=== PATIENT | female | born 1990 | race Caucasian/White ===

== ENCOUNTER 2020-07-20 13:35 | Emergency (ER) | payer SELFPAY ==
[~2020-07-20] VITALS: Ht 157.5 cm; Wt 72.6 kg
== END 2020-07-20 15:09 | disposition left against medical advice (07) ==
LOC: ER 13:35
DX: Z53.21 Procedure and treatment not carried out due to patient leaving prior to being seen by health care provider (principal)

== ENCOUNTER 2020-08-17 16:20 | Inpatient (IN) | payer OTHER ==
[~2020-08-17] VITALS: Ht 157.5 cm; Wt 98.1 kg
[2020-08-17 19:07] LABS: BASOPHILS ABSOLUTE AUTO 0.14 K/mm3 (0.00-0.23); BASOPHILS PERCENT AUTO 1 % (0-2); EOSINOPHILS ABSOLUTE AUTO 0.16 K/mm3 (0.00-0.68); EOSINOPHILS PERCENT AUTO 1 % (0-6); Hematocrit 35.8 % (33.0-51.0); Hemoglobin 11.9 g/dL (11.5-16.0); IMMATURE GRAN ABSOLUTE AUTO 0.34 K/mm3 (0.00-0.10); IMMATURE GRAN PERCENT AUTO 1 % (0-1); LYMPHOCYTES ABSOLUTE AUTO 2.79 K/mm3 (0.84-5.20); LYMPHOCYTES PERCENT AUTO 9 % (21-46); MONOCYTES PERCENT AUTO 4 % (4-13); Mean Corpuscular HGB 28.4 pg (26.0-34.0); Mean Corpuscular HGB Conc 33.2 g/dL (31.5-36.5); Mean Corpuscular Volume 85 fL (80-100); Mean Platelet Volume 10.2 fL (9.1-12.4); NEUTROPHILS ABSOLUTE AUTO 25.67 K/mm3 (1.96-9.15); NEUTROPHILS PERCENT AUTO 84 % (41-73); Platelet Count 189 K/mm3 (150-400); RDW Coefficient Variation 13.9 % (11.7-14.2); RDW Standard Deviation 42.6 fL (35.1-46.3); Red Blood Cell Count 4.19 M/mm3 (3.80-5.20)
[2020-08-17 19:20] LABS: Alanine Aminotransfer (ALT/SGP 45 U/L (12-78); Albumin, Blood 2.8 g/dL (3.4-5.0); Albumin/Globulin Ratio 0.6 (0.8-1.8); Alk Phos 127 U/L (50-136); Anion Gap 11 mmol/L (6-16); Aspartate Aminotrans (AST/SGOT 46 U/L (12-37); Bilirubin, Total 0.9 mg/dL (0.1-1.0); Blood Urea Nitrogen 17 mg/dL (8-24); Bun/Creatinine Ratio 18.4 (12.0-20.0); CO2, Blood 18 mmol/L (21-32); Calcium, Blood 9.1 mg/dL (8.5-10.1); Chloride, Blood 108 mmol/L (98-108); Creatinine, Blood 0.92 mg/dL (0.40-1.00); Globulin, Blood 4.5 g/dL (2.2-4.0); Glomerular Filtration Rate >60 (60-); Glucose, Blood 103 mg/dL (70-99); Potassium, Blood 3.3 mmol/L (3.5-5.5); Sodium, Blood 137 mmol/L (136-145); Total Protein, Blood 7.3 g/dL (6.4-8.2)
--- NOTE | 2020-08-17 19:30 | NUR ---
PT CALLS TO REPORT THAT SHE IS BLEEDING. LINEN CHANGED AND PAD AND PANTIES PLACED ON PT.
--- NOTE | 2020-08-17 19:38 | NUR ---
PT REQUESTING PERCOCET FOR PAIN. SHE IS OFFERED FENTANYL AFTER IV START, BUT SHE STATES SHE IS TOO PAINFUL TO WAIT. Cely ROBERTS CNM UPDATING ORDER FOR PERCOCET Q 2 HOURS.
[2020-08-17 20:49] LABS: Influenza A, PCR Negative (NEGATIVE); Influenza B, PCR Negative (NEGATIVE); Resp Syncytial Virus, PCR Negative (NEGATIVE); SARS-Cov-2 (COVID-19) PCR, MMC Negative (NEGATIVE)
[2020-08-17 20:51] LABS: International Normalized Ratio 1.41; Prothrombin Time Results 14.8 Sec (9.7-11.5)
[2020-08-17] MEDS ORDERED: FOLIVANE-OB CA1 EACH (22:11)
[2020-08-17 22:33] LABS: Fibrinogen 71 mg/dL (170-430)
[2020-08-17 22:54] LABS: D-Dimer, Quantitative >35.20 mg/L FEU (0.00-0.52)
--- NOTE | 2020-08-17 23:52 | NUR ---
UP TO VOID PAD ,PANTIES AND GOWN SATURATED WITH BLOOD
[2020-08-18 03:02] LABS: BASOPHILS ABSOLUTE AUTO 0.06 K/mm3 (0.00-0.23); BASOPHILS PERCENT AUTO 0 % (0-2); EOSINOPHILS PERCENT AUTO 0 % (0-6); Hematocrit 29.2 % (33.0-51.0); Hemoglobin 9.7 g/dL (11.5-16.0); IMMATURE GRAN ABSOLUTE AUTO 0.31 K/mm3 (0.00-0.10); IMMATURE GRAN PERCENT AUTO 1 % (0-1); LYMPHOCYTES ABSOLUTE AUTO 1.39 K/mm3 (0.84-5.20); LYMPHOCYTES PERCENT AUTO 5 % (21-46); MONOCYTES ABSOLUTE AUTO 0.57 K/mm3 (0.16-1.47); MONOCYTES PERCENT AUTO 2 % (4-13); Mean Corpuscular HGB 28.9 pg (26.0-34.0); Mean Corpuscular HGB Conc 33.2 g/dL (31.5-36.5); Mean Corpuscular Volume 87 fL (80-100); Mean Platelet Volume 10.7 fL (9.1-12.4); NEUTROPHILS PERCENT AUTO 93 % (41-73); Platelet Count 146 K/mm3 (150-400); RDW Coefficient Variation 14.2 % (11.7-14.2); RDW Standard Deviation 43.8 fL (35.1-46.3); Red Blood Cell Count 3.36 M/mm3 (3.80-5.20); White Blood Cell Count 30.83 K/mm3 (4.00-11.30)
[2020-08-18 03:23] LABS: International Normalized Ratio 1.12; Prothrombin Time Results 11.9 Sec (9.7-11.5)
[2020-08-18 03:31] LABS: D-Dimer, Quantitative >35.20 mg/L FEU (0.00-0.52)
[2020-08-18 03:35] LABS: Albumin, Blood 2.6 g/dL (3.4-5.0); Albumin/Globulin Ratio 0.6 (0.8-1.8); Bilirubin, Total 0.5 mg/dL (0.1-1.0); Bun/Creatinine Ratio 18.4 (12.0-20.0); Calcium, Blood 8.1 mg/dL (8.5-10.1); Creatinine, Blood 1.25 mg/dL (0.40-1.00); Globulin, Blood 4.3 g/dL (2.2-4.0); Total Protein, Blood 6.9 g/dL (6.4-8.2)
[2020-08-18 05:31] LABS: Potassium, Blood 6.6 mmol/L (3.5-5.5)
[2020-08-18 05:41] LABS: Albumin, Blood 2.4 g/dL (3.4-5.0); Albumin/Globulin Ratio 0.6 (0.8-1.8); Bilirubin, Total 0.4 mg/dL (0.1-1.0); Calcium, Blood 7.7 mg/dL (8.5-10.1); Creatinine, Blood 1.33 mg/dL (0.40-1.00); Globulin, Blood 4.2 g/dL (2.2-4.0); Potassium, Blood 6.9 mmol/L (3.5-5.5); Total Protein, Blood 6.6 g/dL (6.4-8.2)
[2020-08-18 06:25] LABS: Hematocrit 18.3 % (33.0-51.0); Mean Corpuscular HGB 28.4 pg (26.0-34.0); Mean Corpuscular HGB Conc 32.8 g/dL (31.5-36.5); Mean Corpuscular Volume 87 fL (80-100); Mean Platelet Volume 11.1 fL (9.1-12.4); NRBC ABSOLUTE 0.02 K/mm3 (0.00-0.02); NRBC Auto 0.1 /100 WBC (0.0-0.2); Platelet Count 107 K/mm3 (150-400); RDW Coefficient Variation 14.3 % (11.7-14.2); RDW Standard Deviation 45.1 fL (35.1-46.3); Red Blood Cell Count 2.11 M/mm3 (3.80-5.20); White Blood Cell Count 23.44 K/mm3 (4.00-11.30)
--- NOTE | 2020-08-18 06:25 | NUR ---
08/18/20 0625 Navya Estrada PT RECIEVED SCHEDULED ANTIBIOTICS PRIOR TO ARRIVAL TO OR. BLOOD DRAWN PER DR LAYNE AFTER INDUCTION. DEMISED BABY BORN AT 0621. CBG CHECKED PT WAS 141.
[2020-08-18 06:45] LABS: Albumin, Blood 1.9 g/dL (3.4-5.0); Albumin/Globulin Ratio 0.6 (0.8-1.8); Bilirubin, Total 0.3 mg/dL (0.1-1.0); Bun/Creatinine Ratio 18.5 (12.0-20.0); Calcium, Blood 7.7 mg/dL (8.5-10.1); Creatinine, Blood 1.3 mg/dL (0.40-1.00); Globulin, Blood 3.1 g/dL (2.2-4.0)
--- NOTE | 2020-08-18 07:45 | NUR ---
Assumed care of pt on arrival to ICU 14 from OR and previous, [facility] at 0735. Pt admitted to unit for monitoring of sepsis and potential DIC s/p with general anesthesia for demise and placental abruption. Pt alert, oriented x 3. Lethargic, but aware of circumstances. Pt arrived with OR nurse, Avril. Dr Mott and Dr Hancock. Pt asks provider "Was my baby really ?". Pt has low abd incision covered with yamilka dressing. Scant amount of drainage on dressing. Shazia pad underneath patient with small amount of dried red drainage. Uterine fundus assessed with relief charge nurse Cheree. At time of assessment, fundus palpated approx 1.5 inches below belly button. Per report from both doctors, pt received cytotec suppository for bleeding. Dr Hancock states to continue to assess funus to ensure uterus is getting smaller, but otherwise no massage necessary. Provider also give verbal order to administer one unit of PRBCs. Stated EBL was 800 mL intraopertive with an additional 800 mL in clots. Preopertive, pt also had about 800 mL measured on shazia pad. On assessment, pt follows commands, verbalizes needs, and answers questions appropriately. Pt sad, but pleasant and coopertive with care. Lungs clear, diminished in bases. RR 14, respirations shallow. SpO2 90% or greater with room air. ST per monitor. BP stable. Nash catheter in place with small amount of yellow urine. Bed in lowest position. Call light in reach. Pt denies need at this time.
[2020-08-18 08:19] LABS: Source, Urine Catheter
[2020-08-18 08:26] LABS: Bilirubin, Urine Neg (Neg); Blood, Urine 5+ (Neg); Glucose Qualitative, Urine 2+ (Neg); Ketones, Urine Neg (Neg); Leukocyte Esterase, Urine Neg (Neg); Nitrite, Urine Neg (Neg); Protein, Urine 4+ (Neg); Urobilinogen, Urine NORM (Normal)
[2020-08-18 08:34] LABS: Appearance, Urine Cloudy (Clear); Color, Urine Amber (P-Yellow)
[2020-08-18 08:48] LABS: Renal Epithelial Rare /hpf (0-Rare); Transitional Epithelial Cells Few /hpf (0-Rare)
[2020-08-18 08:49] LABS: Amorphous Heavy (0-Heavy); Squamous Epithelial Cells Rare /hpf (Few)
[2020-08-18 08:50] LABS: Bacteria Mod /hpf
--- NOTE | 2020-08-18 09:18 | NUR ---
Pt's spouse at bedside. Spouse, Travis, pleasant and cooperative. Pt awake, tolerating clear liquids well. Remains on room air. 1 unit PRBCs transfusing. SR per monitor. BP stable. Uterine fundus approx 2 inches below belly button. Small amount of new drainage to yosef pad. Pt given IV fentanyl and PO percocet for pain. Wonderbelén in to see patient several times since arrival to unit.
[2020-08-18 09:33] LABS: U Amphetamine Screen Not Detected; U Barbituate Screen Not Detected; U Benzodiazapine Screen Not Detected; U Buprenorphine Screen Not Detected; U Cannabinoids Screen Not Detected; U Cocaine Screen Not Detected; U Methadone Screen Not Detected; U Methamphetamine Screen Not Detected; U Opiates Screen Not Detected; U Phencyclidine Screen Not Detected; U Propoxyphene Screen Not Detected
[2020-08-18 11:42] LABS: BASOPHILS ABSOLUTE AUTO 0.05 K/mm3 (0.00-0.23); BASOPHILS PERCENT AUTO 0 % (0-2); EOSINOPHILS PERCENT AUTO 0 % (0-6); Hematocrit 24.2 % (33.0-51.0); Hemoglobin 8.3 g/dL (11.5-16.0); IMMATURE GRAN ABSOLUTE AUTO 0.23 K/mm3 (0.00-0.10); IMMATURE GRAN PERCENT AUTO 1 % (0-1); LYMPHOCYTES ABSOLUTE AUTO 1.73 K/mm3 (0.84-5.20); LYMPHOCYTES PERCENT AUTO 6 % (21-46); MONOCYTES ABSOLUTE AUTO 0.54 K/mm3 (0.16-1.47); MONOCYTES PERCENT AUTO 2 % (4-13); Mean Corpuscular HGB 29.2 pg (26.0-34.0); Mean Corpuscular HGB Conc 34.3 g/dL (31.5-36.5); Mean Corpuscular Volume 85 fL (80-100); Mean Platelet Volume 10.7 fL (9.1-12.4); NEUTROPHILS ABSOLUTE AUTO 25.22 K/mm3 (1.96-9.15); NEUTROPHILS PERCENT AUTO 91 % (41-73); NRBC ABSOLUTE 0.02 K/mm3 (0.00-0.02); NRBC Auto 0.1 /100 WBC (0.0-0.2); Platelet Count 95 K/mm3 (150-400); RDW Coefficient Variation 15.9 % (11.7-14.2); RDW Standard Deviation 49.1 fL (35.1-46.3); Red Blood Cell Count 2.84 M/mm3 (3.80-5.20); White Blood Cell Count 27.77 K/mm3 (4.00-11.30)
--- NOTE | 2020-08-18 11:42 | NUR ---
Fundus assessed with Allie GAMBINO from [facility], [facility]. No blood per vagina during paplation. Pt rolled for throrough linen assessment. Pt continues to shed small amounts of blood per vagina. Pt tolerating clear liquids well. SR per monitor, HR ranging 75-85. Hypertensive at times, but resolves with pain control.
[2020-08-18 12:01] LABS: Albumin, Blood 1.9 g/dL (3.4-5.0); Albumin/Globulin Ratio 0.7 (0.8-1.8); Bilirubin, Total 0.5 mg/dL (0.1-1.0); Bun/Creatinine Ratio 16.5 (12.0-20.0); Calcium, Blood 7.2 mg/dL (8.5-10.1); Creatinine, Blood 1.58 mg/dL (0.40-1.00); Globulin, Blood 2.9 g/dL (2.2-4.0); Magnesium, Blood 1.5 mg/dL (1.6-2.4); Potassium, Blood 5.6 mmol/L (3.5-5.5); Total Protein, Blood 4.8 g/dL (6.4-8.2)
[2020-08-18 12:06] LABS: D-Dimer, Quantitative >35.20 mg/L FEU (0.00-0.52); Fibrinogen 239 mg/dL (170-430); Prothrombin Time Results 10.7 Sec (9.7-11.5)
--- NOTE | 2020-08-18 12:32 | NUR ---
Call placed to Dr Finney to notify of new lab results. Discussed that WBC increased, as well as lactic acid. Discussed with provider that these labs were drawn before vancomycin was started. Provider states vancomycin will be sufficient to address these abnormal labs. Reviewed PT, INR, PTT, fibrinogen, and HGB with provider. Provider stated these are acceptable. Discussed magnesium and potassium results. Provider states to give 1 G mag sulfate and recheck potassium when magnesium is done. Reviewed that pt has had sepsis bolus and a lot of fluid when accounting for ABX and blood. Provider states that in addition to LR at 125 (with pitocin), provider would like patient to receive 50 mL/hr NS. Altogether, provider would like patient to receive a total of 175 mL/hr of fluids.
--- NOTE | 2020-08-18 14:00 | NUR ---
Dr Hancock in to see pt and assess. States [facility].
--- NOTE | 2020-08-18 15:21 | NUR ---
Call placed to Dr Finney to notify of elevated potassium. Orders given for D50 and IV inuslin. Recheck potassium in two hours.
[2020-08-18 15:56] LABS: U Oxycodone Screen DETECTED
--- NOTE | 2020-08-18 17:08 | NUR ---
Patient transferred to room 129, as [facility] status. Report given to Edie GAMBINO. At time of transfer, pt A&O x 4. Answering questions. Following commands. Verbalizing needs. Room air. SR per monitor. BP stable. Nash catheter patent and draining clear yellow urine. SHORTY site unchanged from initial assessment. Pt having small amount of blood per vagina. Stating pain feels much better controlled. Pt tolerating fundus assessments well. Fundus remains unchanged since assessment with [facility] lost charge card clerk this morning. Wonderly updated, as pitocin was completed. Provider stated no additional pitocin necessary. Chart, medications, and belonging transferred with patient. Spouse, Travis, notified of transfer.
--- NOTE | 2020-08-18 17:57 | NUR ---
MOTHER HOLDING BABY. CALLED FOR RETIREMENT MANAGER PER PT REQUEST. CUDDLE COT IN ROOM PER PT REQUEST.
--- NOTE | 2020-08-18 18:00 | NUR ---
PT ARRIVED TO ROOM 129 VIA BED FROM ICU. PAS APPLIED AND TURNED ON, IV INFUSING, PT ORIENTED TO ROOM.
--- NOTE | 2020-08-18 18:51 | NUR ---
PT STATES SHE IS NOT PASSING GAS YET, BUT DENIES GAS PAIN
[2020-08-18 19:06] LABS: BASOPHILS ABSOLUTE AUTO 0.03 K/mm3 (0.00-0.23); BASOPHILS PERCENT AUTO 0 % (0-2); EOSINOPHILS PERCENT AUTO 0 % (0-6); Hematocrit 20.7 % (33.0-51.0); Hemoglobin 7.1 g/dL (11.5-16.0); IMMATURE GRAN ABSOLUTE AUTO 0.24 K/mm3 (0.00-0.10); IMMATURE GRAN PERCENT AUTO 1 % (0-1); LYMPHOCYTES ABSOLUTE AUTO 1.91 K/mm3 (0.84-5.20); LYMPHOCYTES PERCENT AUTO 7 % (21-46); MONOCYTES ABSOLUTE AUTO 1.04 K/mm3 (0.16-1.47); MONOCYTES PERCENT AUTO 4 % (4-13); Mean Corpuscular HGB Conc 34.3 g/dL (31.5-36.5); Mean Corpuscular Volume 85 fL (80-100); Mean Platelet Volume 11.7 fL (9.1-12.4); NEUTROPHILS ABSOLUTE AUTO 24.28 K/mm3 (1.96-9.15); NEUTROPHILS PERCENT AUTO 88 % (41-73); NRBC ABSOLUTE 0.02 K/mm3 (0.00-0.02); NRBC Auto 0.1 /100 WBC (0.0-0.2); Platelet Count 95 K/mm3 (150-400); Red Blood Cell Count 2.45 M/mm3 (3.80-5.20)
[2020-08-18 19:21] LABS: Prothrombin Time Results 10.2 Sec (9.7-11.5)
[2020-08-18 19:22] LABS: International Normalized Ratio 0.95
[2020-08-18 19:31] LABS: D-Dimer, Quantitative 12.98 mg/L FEU (0.00-0.52)
[2020-08-19 03:13] LABS: BASOPHILS ABSOLUTE AUTO 0.03 K/mm3 (0.00-0.23); BASOPHILS PERCENT AUTO 0 % (0-2); EOSINOPHILS ABSOLUTE AUTO 0.01 K/mm3 (0.00-0.68); EOSINOPHILS PERCENT AUTO 0 % (0-6); IMMATURE GRAN ABSOLUTE AUTO 0.15 K/mm3 (0.00-0.10); IMMATURE GRAN PERCENT AUTO 1 % (0-1); LYMPHOCYTES ABSOLUTE AUTO 2.39 K/mm3 (0.84-5.20); LYMPHOCYTES PERCENT AUTO 11 % (21-46); MONOCYTES ABSOLUTE AUTO 1.37 K/mm3 (0.16-1.47); MONOCYTES PERCENT AUTO 6 % (4-13); Mean Corpuscular HGB 29.6 pg (26.0-34.0); Mean Corpuscular HGB Conc 33.9 g/dL (31.5-36.5); Mean Corpuscular Volume 87 fL (80-100); Mean Platelet Volume 11.2 fL (9.1-12.4); NEUTROPHILS ABSOLUTE AUTO 17.98 K/mm3 (1.96-9.15); NEUTROPHILS PERCENT AUTO 82 % (41-73); NRBC ABSOLUTE 0.02 K/mm3 (0.00-0.02); NRBC Auto 0.1 /100 WBC (0.0-0.2); Platelet Count 88 K/mm3 (150-400); RDW Coefficient Variation 17.9 % (11.7-14.2); RDW Standard Deviation 55.5 fL (35.1-46.3); Red Blood Cell Count 2.03 M/mm3 (3.80-5.20); White Blood Cell Count 21.93 K/mm3 (4.00-11.30)
[2020-08-19 03:16] LABS: Hematocrit 17.7 % (33.0-51.0)
[2020-08-19 03:35] LABS: D-Dimer, Quantitative 7.78 mg/L FEU (0.00-0.52); International Normalized Ratio 0.95; Prothrombin Time Results 10.2 Sec (9.7-11.5)
--- NOTE | 2020-08-19 04:36 | NUR ---
WONDERLY UPDATED ON PT CRITCAL LAB VALUES OF HCT 17.7 AND HGB OF 6.0. ORDERS TO TRANSFUSE TWO UNITS OF PACKED RED BLOOD CELLS, AND REBEAT H AND H LABS 6 HOURS AFTER LAST UNIT
--- NOTE | 2020-08-19 07:52 | NUR ---
PT REPORTS NOT WANTING TO TAKE A DEEP BREATH R/T FEELING LIKE SHE NEEDS TO COUGH AND IT HURTS. PT ASKED TO DEMONSTRATE USE OF I.S. ABLE TO GET UP TO 1000 ML. ENCOURAGED TO MAKE GOALS TO GET UP TO 1500ML TODAY. ENCOUAGED TO USE Q 1H WHILE AWAKE. PT DEMONSTRATES UNDERSTANDING
--- NOTE | 2020-08-19 08:32 | NUR ---
BREAKFAST VINI WELL BY PT. PT DESIRES TO EAT FOOD THIS MORNING
--- NOTE | 2020-08-19 09:13 | NUR ---
DR. LINARES AT BEDSIDE. IVF RATE DECREASED PER OK TO GET PT OOB TO CHAIR AND SHOWER IF PT TOLERATES. PT DESIRES TO GET OOB TODAY. PLAN WHEN BLOOD INFUSION COMPLETE TO TRY GETTING OOB. DISCUSSED TAKING THINGS SLOW TODAY BUT THAT THE GOALS ARE TO INCREASE I.S. USE, OOB TO SHOWER, AND UP TO CHAIR TODAY. PT TALKATIVE AND AGREES WITH PLANS. DISCUSSED HOME ARRANGEMENTS WITH PT AND PT STATES SHE IS READY TO WORK ON PAPERWORK. PAPERWORK PROVIDED.
--- NOTE | 2020-08-19 10:35 | NUR ---
HOSPITALIST DR. TOWNSEND HERE TO SEE PT. NEW ORDERS RECEIVED.
--- NOTE | 2020-08-19 11:33 | NUR ---
PT OOB TO SHOWER, VINI WELL. R/T CHAIR PER PT REQUEST. SITTING UP AND HOLDING BABY. SAAB LEFT IN AT THIS TIME TO BE SURE PT CAN VINI GETTING UP TO BRP WITHOUT DIFFICULTIES. VINI PO LIQUIDS WELL.
--- NOTE | 2020-08-19 11:57 | NUR ---
PT REMAINS SITTING UP IN CHAIR. VINI LUNCH WELL. TALKING ON PHONE.
[2020-08-19 12:17] LABS: Vancomycin, Trough 40.2 ug/mL (5.0-10.0)
--- NOTE | 2020-08-19 12:32 | NUR ---
PT R/T BED TO TAKE A NAP.
--- NOTE | 2020-08-19 14:27 | NUR ---
PT C/O FEELING TIRED. HAS TRIED TO NAP ALL DAY BUT HAS BEEN STIRRED EACH TIME. VS DONE. VS WNL. RN OUT OF ROOM AND WILL LOOK IN ON HER IN AN HOUR BUT NO NEED TO WAKE HER. PT TO CALL IF SHE NEEDS ANY THING.
[2020-08-19 16:34] LABS: BASOPHILS ABSOLUTE AUTO 0.07 K/mm3 (0.00-0.23); BASOPHILS PERCENT AUTO 0 % (0-2); EOSINOPHILS ABSOLUTE AUTO 0.12 K/mm3 (0.00-0.68); EOSINOPHILS PERCENT AUTO 1 % (0-6); Hematocrit 25.8 % (33.0-51.0); Hemoglobin 8.7 g/dL (11.5-16.0); IMMATURE GRAN PERCENT AUTO 2 % (0-1); LYMPHOCYTES ABSOLUTE AUTO 2.58 K/mm3 (0.84-5.20); LYMPHOCYTES PERCENT AUTO 13 % (21-46); MONOCYTES ABSOLUTE AUTO 1.14 K/mm3 (0.16-1.47); MONOCYTES PERCENT AUTO 6 % (4-13); Mean Corpuscular HGB 29.4 pg (26.0-34.0); Mean Corpuscular HGB Conc 33.7 g/dL (31.5-36.5); Mean Corpuscular Volume 87 fL (80-100); Mean Platelet Volume 10.8 fL (9.1-12.4); NEUTROPHILS ABSOLUTE AUTO 15.38 K/mm3 (1.96-9.15); NEUTROPHILS PERCENT AUTO 79 % (41-73); NRBC ABSOLUTE 0.02 K/mm3 (0.00-0.02); NRBC Auto 0.1 /100 WBC (0.0-0.2); Platelet Count 101 K/mm3 (150-400); RDW Coefficient Variation 16.9 % (11.7-14.2); RDW Standard Deviation 52.3 fL (35.1-46.3); Red Blood Cell Count 2.96 M/mm3 (3.80-5.20); White Blood Cell Count 19.59 K/mm3 (4.00-11.30)
--- NOTE | 2020-08-20 03:25 | NUR ---
PT'S HEART RATE CONTINUES TO SPIKE TO 120-130 WITH ACTIVITY SUCH WALKING TO THE BATHROOM AND WITH EMOTIONAL DISTRESS.
[2020-08-20 06:31] LABS: BASOPHILS ABSOLUTE AUTO 0.11 K/mm3 (0.00-0.23); BASOPHILS PERCENT AUTO 1 % (0-2); EOSINOPHILS ABSOLUTE AUTO 0.26 K/mm3 (0.00-0.68); EOSINOPHILS PERCENT AUTO 1 % (0-6); Hematocrit 24.3 % (33.0-51.0); Hemoglobin 8.2 g/dL (11.5-16.0); IMMATURE GRAN ABSOLUTE AUTO 0.22 K/mm3 (0.00-0.10); IMMATURE GRAN PERCENT AUTO 1 % (0-1); LYMPHOCYTES ABSOLUTE AUTO 2.49 K/mm3 (0.84-5.20); LYMPHOCYTES PERCENT AUTO 14 % (21-46); MONOCYTES ABSOLUTE AUTO 0.99 K/mm3 (0.16-1.47); MONOCYTES PERCENT AUTO 5 % (4-13); Mean Corpuscular HGB 29.7 pg (26.0-34.0); Mean Corpuscular HGB Conc 33.7 g/dL (31.5-36.5); Mean Corpuscular Volume 88 fL (80-100); Mean Platelet Volume 10.3 fL (9.1-12.4); NEUTROPHILS ABSOLUTE AUTO 14.25 K/mm3 (1.96-9.15); NEUTROPHILS PERCENT AUTO 78 % (41-73); NRBC ABSOLUTE 0.02 K/mm3 (0.00-0.02); NRBC Auto 0.1 /100 WBC (0.0-0.2); Platelet Count 111 K/mm3 (150-400); RDW Coefficient Variation 17.3 % (11.7-14.2); Red Blood Cell Count 2.76 M/mm3 (3.80-5.20); White Blood Cell Count 18.32 K/mm3 (4.00-11.30)
[2020-08-20 06:44] LABS: Alanine Aminotransfer (ALT/SGP 23 U/L (12-78); Albumin, Blood 1.7 g/dL (3.4-5.0); Albumin/Globulin Ratio 0.5 (0.8-1.8); Alk Phos 74 U/L (50-136); Anion Gap 7 mmol/L (6-16); Aspartate Aminotrans (AST/SGOT 23 U/L (12-37); Bilirubin, Total 0.3 mg/dL (0.1-1.0); Blood Urea Nitrogen 23 mg/dL (8-24); Bun/Creatinine Ratio 10.9 (12.0-20.0); CO2, Blood 21 mmol/L (21-32); Calcium, Blood 7.8 mg/dL (8.5-10.1); Chloride, Blood 113 mmol/L (98-108); Creatinine, Blood 2.11 mg/dL (0.40-1.00); Globulin, Blood 3.2 g/dL (2.2-4.0); Glomerular Filtration Rate 30 (60-); Glucose, Blood 75 mg/dL (70-99); Potassium, Blood 4.3 mmol/L (3.5-5.5); Sodium, Blood 141 mmol/L (136-145); Total Protein, Blood 4.9 g/dL (6.4-8.2); Vancomycin, Random 21.9 ug/mL
--- NOTE | 2020-08-20 11:16 | NUR ---
sleeping, SO out of room
--- NOTE | 2020-08-20 11:55 | NUR ---
PATIENT SITTING UP IN CHAIR BACK IN BED FOR VS B/P 169/95 ASYMPTOMATIC, WAS UPSET ON PHONE WITH SO, BIOX 94-97% NOT SOB WILL CONTINUE TO MONITOR VOIDED 200CC
--- NOTE | 2020-08-20 12:10 | NUR ---
RN ROUNDED TO TALK W/ PATIENT ABOUT WAYS TO REDUCE/RID OF MILK SUPPLY. PT VERBALIZED UNDERSTANDING, DENIES QUESTIONS.
--- NOTE | 2020-08-20 12:27 | NUR ---
PATIENT RESTING HER SO IS SWEATING AND APPEARS MANIC AND STATES HE TOOK SOME MEDICATION FOR IT HE APPEARS TO HAVE HER UPSET WITH HIS BEHAVIOR, PATIENT DENIES HEADACHE OR EPIGASTRIC PAIN. CONTINUE TO MONITOR
--- NOTE | 2020-08-20 13:06 | NUR ---
STATES FEELS FINE BUT TIRED, UP TO VOID, DENIES SOB, LUNGS CLEAR
--- NOTE | 2020-08-20 14:18 | NUR ---
gown changed, milk in using support bra and sent for cabbage to help with decreasing milk supply, wonderly assessed patient
--- NOTE | 2020-08-20 16:37 | NUR ---
SELINA FROM [facility] HERE TO BLESS BABY
--- NOTE | 2020-08-20 16:37 | NUR ---
Performed a blessing of baby Eliza. Parents tearful, but appropriate. I will remain available.
[2020-08-20 19:09] LABS: RUBELLA ANTIBODIES, IGG 1.91 index (Immune >0.99)
[2020-08-21 06:12] LABS: Hematocrit 26.6 % (33.0-51.0); Hemoglobin 8.9 g/dL (11.5-16.0); Mean Corpuscular HGB 29.8 pg (26.0-34.0); Mean Corpuscular HGB Conc 33.5 g/dL (31.5-36.5); Mean Corpuscular Volume 89 fL (80-100); Mean Platelet Volume 10.6 fL (9.1-12.4); NRBC ABSOLUTE 0.02 K/mm3 (0.00-0.02); NRBC Auto 0.1 /100 WBC (0.0-0.2); Platelet Count 168 K/mm3 (150-400); RDW Coefficient Variation 17.1 % (11.7-14.2); RDW Standard Deviation 54.3 fL (35.1-46.3); Red Blood Cell Count 2.99 M/mm3 (3.80-5.20); White Blood Cell Count 15.97 K/mm3 (4.00-11.30)
[2020-08-21 06:27] LABS: Bun/Creatinine Ratio 10.4 (12.0-20.0); Calcium, Blood 8.5 mg/dL (8.5-10.1); Creatinine, Blood 1.93 mg/dL (0.40-1.00); Potassium, Blood 4.3 mmol/L (3.5-5.5)
--- NOTE | 2020-08-21 12:46 | NUR ---
B/P ELEVATED PATIENT SITTING HAD JUST WALKED AROUND ROOM, WAS HOLDING BABY EMOTIONALLY UPSET, PAIN DOWN TO 3, LUNGS STILL DIMINISHED BUT DENIES SOB CONTINUE TO MONITOR
--- NOTE | 2020-08-21 14:12 | NUR ---
WONDERLY AWARE OF INCREASED B/P HE WILL CONSULT WITH DR SHAH CAN CONTINUE Q 4 HOUR VS AT THIS TIME
--- NOTE | 2020-08-21 15:18 | NUR ---
b/p after up to bathroom will take again in 15 min, no change in symptoms
--- NOTE | 2020-08-21 16:45 | NUR ---
DR LINARES HERE, B/P CUFF BACK TO Q 4 HOURS, NEW ORDERS FOR LABETALOL, VOIDED
[2020-08-22 05:06] LABS: Hematocrit 26.6 % (33.0-51.0); Hemoglobin 8.8 g/dL (11.5-16.0); Mean Corpuscular HGB 29.2 pg (26.0-34.0); Mean Corpuscular HGB Conc 33.1 g/dL (31.5-36.5); Mean Corpuscular Volume 88 fL (80-100); Mean Platelet Volume 10.1 fL (9.1-12.4); Platelet Count 205 K/mm3 (150-400); RDW Coefficient Variation 16.6 % (11.7-14.2); Red Blood Cell Count 3.01 M/mm3 (3.80-5.20); White Blood Cell Count 12.63 K/mm3 (4.00-11.30)
--- NOTE | 2020-08-22 05:19 | NUR ---
0348- PT CALLED NURSE INTO ROOM BECAUSE SHE WOKE UP AND SHE WAS REALLY SHAKY AND COLD. RN CHECKED PTS VS, BP WAS ELEVATED, PT ASKED IF SHE COULD USE THE RESTROOM BEFORE RECHECKING VS. ONCE PT WAS IN THE RESTROON RN CALLED CHARGE NURSE MS INTO ROOM TO ASSESS PT. WHILE PT WAS STANDING AT THE BATHROOM SINK WASHING HER HANDS SHE STARTED COUGHING AND HER LEGS WERE STARTING TO BEND, RNS ASSISTED PT TO SIT ON THE TOILET UNTIL SHE WAS ABLE TO CATCH HER BREATH AND WALK BACK TO THE BED. ONCE IN BED PT HAD ANOTHER COUGHING FIT, VS CHECKED AND PTS PULSE WAS 150 WITH SPO2 IN THE MID 80s. O2 10L VIA NONREABREATHER ADMINISTERED AND THE REAL ESTATE MANAGER HOSPITALIST DR FREEMAN CALLED. ORDER FOR IV LABETOLOL. PTS O2 SATURATIONS IMPROVED QUICKLY ON OXYGEN AND HER HEARTRATE CAME DOWN BACK IN TO THE 90S-100S WITHIN APPROX 5 MINUTES. OXYGEN DISCONTINUED ONCE PTS SPO2 AND HR NORMALIZED. MS GUEST HISTORY CLERK PLACED 18G IV IN EXPECTATION OF STARTING IV LABETOLOL, ONCE IV PLACED PTS BP LOWERED TO THE 150S/80S, RN CONFIRMED WITH DR FREEMAN AND IV LABETOLOL TO BE HELD. DR FREEMAN TO COME ASSESS PT SHORTLY.
[2020-08-22 05:43] LABS: Bun/Creatinine Ratio 11.1 (12.0-20.0); Calcium, Blood 8.7 mg/dL (8.5-10.1); Creatinine, Blood 1.9 mg/dL (0.40-1.00); Potassium, Blood 3.7 mmol/L (3.5-5.5)
--- NOTE | 2020-08-22 05:43 | NUR ---
0535- DR FREEMAN AT BEDSIDE ASSESSING PATIENT.
[2020-08-22 06:05] LABS: International Normalized Ratio 0.88; Prothrombin Time Results 9.5 Sec (9.7-11.5)
--- NOTE | 2020-08-22 08:05 | NUR ---
EKG LEADS ON PATIENT
--- NOTE | 2020-08-22 08:43 | NUR ---
up frequently to bathroom states she feels better states she thought she had a panaic attack earlier this morning, vss UA collected
--- NOTE | 2020-08-22 09:06 | NUR ---
EKG LEADS OFF PATIENT
--- NOTE | 2020-08-22 09:11 | NUR ---
DR SHAH HERE TO SEE PATIENT UP VOIDING NO NEED FOR PAS STOCKINGS AT THIS TIME PER HER LONG P[ATIENT IS UP MOVING
--- NOTE | 2020-08-22 10:10 | NUR ---
b/p elevated patient just finished U/S. changed out b/p cuff new [id number], states feels better, resting now
[2020-08-22 10:51] LABS: Source, Urine Clean Catch
[2020-08-22 11:03] LABS: Bilirubin, Urine Neg (Neg); Blood, Urine Neg (Neg); Glucose Qualitative, Urine Neg (Neg); Ketones, Urine Neg (Neg); Leukocyte Esterase, Urine Neg (Neg); Nitrite, Urine Neg (Neg); Protein, Urine Neg (Neg); Specific Gravity, Urine 1.005 (1.003-1.022); Urobilinogen, Urine NORM (Normal)
[2020-08-22 11:08] LABS: Appearance, Urine Clear (Clear); Color, Urine Yellow (P-Yellow)
--- NOTE | 2020-08-22 14:17 | NUR ---
[facility] CALLED TO GET BABY. MOM STATED THIS MORNING SHE WAS READY FOR HIM TO GO THEY WILL BE HERE APPROX 1600. MOM APPEARS TO BE SLEEPING FOR PAST COUPLE HOURS.
--- NOTE | 2020-08-22 15:06 | NUR ---
LABS DRAWN, UP TO VOID FEELING BETTER, PATIENT AWARE THAT [facility] WILL BE HERE AT 1600, VERY SAD BUT APPEARS TO BE GRIEVING APPROPRIATE
[2020-08-22 15:23] LABS: Albumin, Blood 1.9 g/dL (3.4-5.0); Anion Gap 8 mmol/L (6-16); Blood Urea Nitrogen 20 mg/dL (8-24); Bun/Creatinine Ratio 10.5 (12.0-20.0); CO2, Blood 24 mmol/L (21-32); Calcium, Blood 8.5 mg/dL (8.5-10.1); Chloride, Blood 110 mmol/L (98-108); Creatinine, Blood 1.91 mg/dL (0.40-1.00); Glomerular Filtration Rate 33 (60-); Glucose, Blood 93 mg/dL (70-99); Phosphorus, Blood 6.4 mg/dL (2.5-4.9); Potassium, Blood 3.8 mmol/L (3.5-5.5); Sodium, Blood 142 mmol/L (136-145)
--- NOTE | 2020-08-22 16:11 | NUR ---
[facility] HERE IN WITH PATIENT
[2020-08-22] MEDS ORDERED: Percocet 5-3251 EACH PO (16:56)
[2020-08-22] MEDS ORDERED: LABE200 (16:57)
--- NOTE | 2020-08-22 17:54 | NUR ---
D/C HOME WITH INSTRUCTIONS
[2020-08-23 08:09] LABS: COMPLEMENT C3, SERUM 167 mg/dL (82-167); COMPLEMENT C4, SERUM 33 mg/dL (12-38)
[2020-08-23 18:10] LABS: ANTI-PS/PT ABS IGG <10 Units (.); ANTI-PS/PT ABS IGM <10 Units (.); APTT 29.2 sec (.); DRVVT SCREEN SECONDS 46.7 sec (.); INR 1.5 ratio (.); PT 1:1 NP 10.3 sec (.); PT 1:1 NP 60 INC 11.8 sec (.); PT 1:1 NP 60 MIN INC. CONTROL 12.1 sec (.); THROMBIN TIME 39.4 sec (.); THROMBIN TIME 1:1 NP 26.6 sec (.); THROMBIN TIME-HEPARIN NEUTRAL. 42.3 sec (.)
[2020-08-23 18:10] LABS: ANTI-DSDNA ANTIBODIES <1 IU/mL (0-9); RNP ANTIBODIES 0.3 AI (0.0-0.9); SJOGREN'S ANTI-SS-A <0.2 AI (0.0-0.9); SJOGREN'S ANTI-SS-B <0.2 AI (0.0-0.9); SMITH ANTIBODIES <0.2 AI (0.0-0.9)
== END 2020-08-22 18:00 | disposition home or self-care (01) | DRG 786 ==
LOC: BC 16:20 → OBS 16:20 → BC 20:39 → ICUW 20:39 → BC 20:57 → ICUW 08-18 07:35 → BC 08-18 17:00
PROVIDERS: Advanced Practice Midwife; Anesthesiology; Family Medicine; Hospitalist; Internal Medicine; Obstetrics & Gynecology; ADMIT Advanced Practice Midwife
PROC: 30233N1 Transfusion of Nonautologous Red Blood Cells into Peripheral Vein, Percutaneous Approach (ICD-10-PCS; 2020-08-18)
PROC: 10D00Z1 Extraction of Products of Conception, Low, Open Approach (ICD-10-PCS; principal; 2020-08-18 07:00)
DX: O45.0 Premature separation of placenta with coagulation defect (principal); O75.3 Other infection during labor; A41.9 Sepsis, unspecified organism; N17.0 Acute kidney failure with tubular necrosis; R65.21 Severe sepsis with septic shock; D62 Acute posthemorrhagic anemia; Z20.828 Contact with and (suspected) exposure to other viral communicable diseases; Z37.1 Single stillbirth; Z3A.28 28 weeks gestation of pregnancy; O99.892 Other specified diseases and conditions complicating childbirth; O16.5 Unspecified maternal hypertension, complicating the puerperium; O90.81 Anemia of the puerperium; O99.284 Endocrine, nutritional and metabolic diseases complicating childbirth; E87.6 Hypokalemia; O99.334 Smoking (tobacco) complicating childbirth; F17.210 Nicotine dependence, cigarettes, uncomplicated; E87.5 Hyperkalemia
CPT/HCPCS: 0241U; 36415; 36416; 36430; 71045; 76770; 76815; 80048; 80053; 80069; 80202; 81001; 81003; 82570; 82947; 83605; 83735; 84132; 84156; 85025; 85027; 85379; 85384; 85610; 85613; 85670; 85730; 86146; 86147; 86148; 86160; 86225; 86235; 86644; 86645; 86694; 86695; 86696; 86762; 86777; 86778; 86850; 86900; 86901; 86920; 87040; 87086; 88307; 94640; A9270; G0480; J0295; J0610; J0696; J1100; J1650; J1815; J1940; J2001; J2210; J2250; J2370; J2405; J2543; J2590; J2704; J2765; J3010; J3370; J3475; J7030; J7050; J7120; J7799; P9012; P9016

== ENCOUNTER 2020-08-26 08:53 | Emergency (ER) | payer OTHER ==
[~2020-08-26 08:53] MED LIST: FOLIVANE-OB CA1 EACH; LABE200; Percocet 5-3251 EACH PO
== END 2020-08-26 09:22 | disposition left against medical advice (07) ==
LOC: ER 08:53
DX: Z53.21 Procedure and treatment not carried out due to patient leaving prior to being seen by health care provider (principal)

== ENCOUNTER 2020-08-26 11:52 | Inpatient (IN) | payer OTHER ==
[~2020-08-26] VITALS: Ht 157.5 cm; Wt 75.0 kg
[2020-08-26 13:07] LABS: Source, Urine Clean Catch
[2020-08-26 13:08] LABS: Albumin, Blood 2.4 g/dL (3.4-5.0); Albumin/Globulin Ratio 0.5 (0.8-1.8); Bilirubin, Total 0.4 mg/dL (0.1-1.0); Bun/Creatinine Ratio 7.3 (12.0-20.0); Calcium, Blood 9.2 mg/dL (8.5-10.1); Creatinine, Blood 1.65 mg/dL (0.40-1.00); Globulin, Blood 4.7 g/dL (2.2-4.0); Potassium, Blood 4.2 mmol/L (3.5-5.5); Total Protein, Blood 7.1 g/dL (6.4-8.2)
[2020-08-26 13:11] LABS: Bilirubin, Urine Neg (Neg); Blood, Urine 1+ (Neg); Glucose Qualitative, Urine Neg (Neg); Ketones, Urine 1+ (Neg); Leukocyte Esterase, Urine Neg (Neg); Nitrite, Urine Neg (Neg); Protein, Urine Neg (Neg); Specific Gravity, Urine 1.005 (1.003-1.022); Urobilinogen, Urine NORM (Normal)
[2020-08-26 13:13] LABS: BASOPHILS ABSOLUTE AUTO 0.12 K/mm3 (0.00-0.23); BASOPHILS PERCENT AUTO 1 % (0-2); EOSINOPHILS ABSOLUTE AUTO 0.33 K/mm3 (0.00-0.68); EOSINOPHILS PERCENT AUTO 2 % (0-6); Hematocrit 29.2 % (33.0-51.0); Hemoglobin 9.6 g/dL (11.5-16.0); IMMATURE GRAN ABSOLUTE AUTO 0.12 K/mm3 (0.00-0.10); IMMATURE GRAN PERCENT AUTO 1 % (0-1); LYMPHOCYTES ABSOLUTE AUTO 1.88 K/mm3 (0.84-5.20); LYMPHOCYTES PERCENT AUTO 13 % (21-46); MONOCYTES ABSOLUTE AUTO 0.82 K/mm3 (0.16-1.47); MONOCYTES PERCENT AUTO 5 % (4-13); Mean Corpuscular HGB 28.8 pg (26.0-34.0); Mean Corpuscular HGB Conc 32.9 g/dL (31.5-36.5); Mean Corpuscular Volume 88 fL (80-100); Mean Platelet Volume 9.9 fL (9.1-12.4); NEUTROPHILS ABSOLUTE AUTO 11.81 K/mm3 (1.96-9.15); NEUTROPHILS PERCENT AUTO 78 % (41-73); Platelet Count 562 K/mm3 (150-400); RDW Coefficient Variation 15.5 % (11.7-14.2); RDW Standard Deviation 49.3 fL (35.1-46.3); Red Blood Cell Count 3.33 M/mm3 (3.80-5.20); White Blood Cell Count 15.08 K/mm3 (4.00-11.30)
--- NOTE | 2020-08-26 13:16 | NUR ---
ARRIVED TO ROOM VIA W/C, A&OX3, S.O. AT BEDSIDE SEEMS VERY ANXIOUS, DRLayla WONDERLY AWARE OF PT'S HIGH BP AND HR, STATE HE WILL BE IN TO SEE PT, PT DENIES ANY CHEST PAIN OR PALPITATIONS, REPORTS HAVING SLIGHT SOB, DENIES ANY COUGH, C/O SORENESS ON L UPPER ARM STATES FROM A BP CUFF FROM PREVIOUS ADMISSION, REPORTS HAVING SCANT VAGINAL BLEEDING, DENIES ANY FEVERS AT HOME, CONT. TO MONITOR FOR ANY CHANGES.
[2020-08-26 13:34] LABS: Appearance, Urine Clear (Clear); Color, Urine Pale Yellow (P-Yellow)
[2020-08-26 13:35] LABS: Red Blood Cells, Urine 0-2 /hpf (0-2)
[2020-08-26 13:36] LABS: Bacteria Few /hpf; Squamous Epithelial Cells Few /hpf (Few)
--- NOTE | 2020-08-26 18:48 | NUR ---
SUMMARY PT REPORTS FEELING BETTER, BP 146/102, HR 99 THIS EVENING, DENIES ANY SOB, VOIDING WITHOUT DIFFICULTY, RATES PAIN AT 2/10, PT TOOK A SHOWER EARLIER TODAY, NO OTHER CHANGES THIS SHIFT.
[2020-08-26 19:34] LABS: Influenza A, PCR Negative (NEGATIVE); Influenza B, PCR Negative (NEGATIVE); Resp Syncytial Virus, PCR Negative (NEGATIVE); SARS-Cov-2 (COVID-19) PCR, MMC Negative (NEGATIVE)
--- NOTE | 2020-08-27 04:19 | NUR ---
SHIFT SUMMARY: PT REPORTS FEELING A LOT BETTER IN BEGINNING OF SHIFT. SECOND HALF OF SHIFT PT DEVELOPED A TEMP OF 100.3, CAUSING BODY ACHES AND CHILLS. PT MEDICATED PER EMAR. TEMP NOW 98.2. HR RANGING FROM 100-115. LAST BP 146/94. PT HAVING A DIFFICULT TIME FALLING ASLEEP LAST NIGHT DESPITE NEW ORDER OF MELATONIN. PT INDEPENDENT IN ROOM. VINI PO AND VOIDING ADEQUATE AMOUNT. PT DOES REPORT A BURNING SENSATION AFTER EACH VOID. PT CALM AND COOPERATIVE WITH CARE. APPEARS TO BE GREIVING APPROPRIATLY.
[2020-08-27 05:04] LABS: BASOPHILS ABSOLUTE AUTO 0.14 K/mm3 (0.00-0.23); BASOPHILS PERCENT AUTO 1 % (0-2); EOSINOPHILS ABSOLUTE AUTO 0.46 K/mm3 (0.00-0.68); EOSINOPHILS PERCENT AUTO 3 % (0-6); Hematocrit 28.4 % (33.0-51.0); Hemoglobin 9.1 g/dL (11.5-16.0); IMMATURE GRAN ABSOLUTE AUTO 0.11 K/mm3 (0.00-0.10); IMMATURE GRAN PERCENT AUTO 1 % (0-1); LYMPHOCYTES ABSOLUTE AUTO 2.39 K/mm3 (0.84-5.20); LYMPHOCYTES PERCENT AUTO 16 % (21-46); MONOCYTES ABSOLUTE AUTO 0.96 K/mm3 (0.16-1.47); MONOCYTES PERCENT AUTO 6 % (4-13); Mean Corpuscular HGB 28.5 pg (26.0-34.0); Mean Corpuscular Volume 89 fL (80-100); Mean Platelet Volume 9.6 fL (9.1-12.4); NEUTROPHILS ABSOLUTE AUTO 10.87 K/mm3 (1.96-9.15); NEUTROPHILS PERCENT AUTO 73 % (41-73); Platelet Count 563 K/mm3 (150-400); RDW Coefficient Variation 15.4 % (11.7-14.2); RDW Standard Deviation 49.8 fL (35.1-46.3); Red Blood Cell Count 3.19 M/mm3 (3.80-5.20); White Blood Cell Count 14.93 K/mm3 (4.00-11.30)
[2020-08-27 05:24] LABS: International Normalized Ratio 1.16; Prothrombin Time Results 12.3 Sec (9.7-11.5)
[2020-08-27 05:27] LABS: Albumin, Blood 2.5 g/dL (3.4-5.0); Anion Gap 7 mmol/L (6-16); Blood Urea Nitrogen 14 mg/dL (8-24); Bun/Creatinine Ratio 8.2 (12.0-20.0); CO2, Blood 23 mmol/L (21-32); Calcium, Blood 9.3 mg/dL (8.5-10.1); Chloride, Blood 109 mmol/L (98-108); Glomerular Filtration Rate 38 (60-); Glucose, Blood 103 mg/dL (70-99); Magnesium, Blood 1.8 mg/dL (1.6-2.4); Phosphorus, Blood 4.8 mg/dL (2.5-4.9); Potassium, Blood 3.8 mmol/L (3.5-5.5); Sodium, Blood 139 mmol/L (136-145)
--- NOTE | 2020-08-27 13:00 | NUR ---
PT AMBULATING WITH SIG. OTHER, STATES SHE IS GOING TO GET SOME "FRESH AIR."
--- NOTE | 2020-08-27 17:22 | NUR ---
SUMMARY PT WAS FEELING TIRED MOST OF THE MORNING,HAD A LONG NAP THIS AFTERNOON, REPORTS FEELING BETTER, BP 127/84, HR 102, DENIES ANY PAIN, BLE'S W/ TRACE EDEMA, DENIES ANY SOB, AMBULATED OUTSIDE WITH SIG. OTHER, TOLERATED WELL, NO ACUTE CHANGES THIS SHIFT.
[2020-08-28 05:17] LABS: BASOPHILS ABSOLUTE AUTO 0.16 K/mm3 (0.00-0.23); BASOPHILS PERCENT AUTO 1 % (0-2); EOSINOPHILS ABSOLUTE AUTO 0.55 K/mm3 (0.00-0.68); EOSINOPHILS PERCENT AUTO 4 % (0-6); Hematocrit 28.7 % (33.0-51.0); Hemoglobin 9.1 g/dL (11.5-16.0); IMMATURE GRAN PERCENT AUTO 1 % (0-1); LYMPHOCYTES PERCENT AUTO 16 % (21-46); MONOCYTES PERCENT AUTO 8 % (4-13); Mean Corpuscular HGB 28.1 pg (26.0-34.0); Mean Corpuscular HGB Conc 31.7 g/dL (31.5-36.5); Mean Corpuscular Volume 89 fL (80-100); Mean Platelet Volume 9.7 fL (9.1-12.4); NEUTROPHILS ABSOLUTE AUTO 9.93 K/mm3 (1.96-9.15); NEUTROPHILS PERCENT AUTO 70 % (41-73); Platelet Count 571 K/mm3 (150-400); RDW Standard Deviation 49.1 fL (35.1-46.3); Red Blood Cell Count 3.24 M/mm3 (3.80-5.20); White Blood Cell Count 14.24 K/mm3 (4.00-11.30)
--- NOTE | 2020-08-28 05:17 | NUR ---
SHIFT SUMMARY: NO SIGNIFICANT CHANGES OVER NIGHT. PT TIRED AND SLEEPING MOST OF SHIFT. DENIES HEADACHE. MAX TEMP 99.1. LAST BP 147/97. INDEPENDENT IN ROOM. VOIDING WELL-URINE CLEAR YELLOW. PT VINI PO AND DRINKING ADEQUATE AMOUNT OF FLUIDS. DENIES PAIN IN LEFT ARM.
[2020-08-28 05:47] LABS: Albumin, Blood 2.5 g/dL (3.4-5.0); Anion Gap 7 mmol/L (6-16); Blood Urea Nitrogen 13 mg/dL (8-24); Bun/Creatinine Ratio 6.9 (12.0-20.0); CO2, Blood 27 mmol/L (21-32); Calcium, Blood 8.8 mg/dL (8.5-10.1); Chloride, Blood 107 mmol/L (98-108); Creatinine, Blood 1.88 mg/dL (0.40-1.00); Glomerular Filtration Rate 34 (60-); Glucose, Blood 97 mg/dL (70-99); Phosphorus, Blood 4.6 mg/dL (2.5-4.9); Potassium, Blood 3.6 mmol/L (3.5-5.5); Sodium, Blood 141 mmol/L (136-145)
--- NOTE | 2020-08-28 18:27 | NUR ---
SHIFT SUMMARY PT HAS DONE WELL TODAY. AMBULATES EASILY IN HALLWAYS. EATING, DRINKING, AND VOIDING WELL. HOPEFUL FOR DC TOMORROW.
[2020-08-29 04:38] LABS: Albumin, Blood 2.6 g/dL (3.4-5.0); Anion Gap 8 mmol/L (6-16); Blood Urea Nitrogen 22 mg/dL (8-24); Bun/Creatinine Ratio 12.9 (12.0-20.0); CO2, Blood 24 mmol/L (21-32); Chloride, Blood 108 mmol/L (98-108); Glomerular Filtration Rate 38 (60-); Glucose, Blood 100 mg/dL (70-99); Phosphorus, Blood 3.9 mg/dL (2.5-4.9); Potassium, Blood 3.9 mmol/L (3.5-5.5); Sodium, Blood 140 mmol/L (136-145)
--- NOTE | 2020-08-29 04:59 | NUR ---
SHIFT SUMMARY PT RESTING WELL T/O NIGHT. AAOX4. PT DENIES DISCOMFORT/NAUSEA. INDEPENDENT IN ROOM. GOOD PO INTAKE + OUTPUT. AWAITING AM LABS. NO ACUTE CHANGES OVER NIGHT. PT REQUESTING TO BE DISCHARGED EARLY POSSIBLE. PT CURRENTLY RESTING IN BED WITH CALL LIGHT IN REACH.
[2020-08-29] MEDS ORDERED: LABE200 PO (12:01)
[2020-08-29] MEDS ORDERED: NIFE30ER PO (12:01)
[2020-08-29] MEDS ORDERED: XARELTO20 MG PO (12:02)
[2020-08-29] MEDS ORDERED: ALPR.25 PO (12:03)
--- NOTE | 2020-08-29 12:45 | NUR ---
DISCHARGE SUMMARY PT A&OX4, VSS, LEFT FLOOR WITH SPOUSE, WITH ALL PERSONAL POSSESSIONS INCLUDING DC PACKET AND ORIGINAL SCRIPTS INCLUDING [employer] PACKET TO GET PT STARTED UNTIL INSURANCE IS APPROVED; SCRIPTS FAXED TO [facility] PER PT REQUEST. PT EDU SHE MUST GET SCRIPTS FILLED TODAY TOMORROW IS A HOLIDAY. DC INSTRUCTIONS PROVIDED. PT REP UNDERSTANDING THOSE INSTRUCTIONS INCLUDING WHEN/HOW TO TAKE BP, WHEN/HOW TO TAKE BP MEDS WITH INSTRUCTIONS.
== END 2020-08-29 12:34 | disposition home or self-care (01) | DRG 776 ==
LOC: SURS 11:52
PROVIDERS: Internal Medicine; ADMIT Obstetrics & Gynecology
DX: O16.5 Unspecified maternal hypertension, complicating the puerperium (principal); I50.21 Acute systolic (congestive) heart failure; I13.0 Hypertensive heart and chronic kidney disease with heart failure and stage 1 through stage 4 chronic kidney disease, or unspecified chronic kidney disease; I82.622 Acute embolism and thrombosis of deep veins of left upper extremity; Z20.828 Contact with and (suspected) exposure to other viral communicable diseases; N18.9 Chronic kidney disease, unspecified; O90.4 Postpartum acute kidney failure; O99.43 Diseases of the circulatory system complicating the puerperium; I34.0 Nonrheumatic mitral (valve) insufficiency; I27.20 Pulmonary hypertension, unspecified; Z79.899 Other long term (current) drug therapy; O90.81 Anemia of the puerperium; D64.9 Anemia, unspecified; O99.335 Smoking (tobacco) complicating the puerperium; F17.210 Nicotine dependence, cigarettes, uncomplicated; O99.345 Other mental disorders complicating the puerperium; F53.0 Postpartum depression; F15.11 Other stimulant abuse, in remission; O87.1 Deep phlebothrombosis in the puerperium
CPT/HCPCS: 0241U; 36415; 71046; 80053; 80069; 81001; 81241; 83735; 83880; 84550; 85025; 85610; 85730; 93306; 93970; 93971; 96375; A9270; G0378; J0360; J1940

== ENCOUNTER 2021-04-10 11:12 | Emergency (ER) | payer OTHER ==
[~2021-04-10] VITALS: Ht 157.5 cm; Wt 69.8 kg
[~2021-04-10 11:12] MED LIST changes: +ALPR.25 PO; +LABE200 PO; +NIFE30ER PO; +XARELTO20 MG PO
[2021-04-10] MEDS ORDERED: Amoxicillin500 MG PO (11:45)
== END 2021-04-10 11:46 | disposition home or self-care (01) ==
LOC: ER 11:12
DX: O99.612 Diseases of the digestive system complicating pregnancy, second trimester (principal); K04.7 Periapical abscess without sinus; Z79.899 Other long term (current) drug therapy; Z79.01 Long term (current) use of anticoagulants; Z3A.14 14 weeks gestation of pregnancy
CPT/HCPCS: 99282

== ENCOUNTER 2021-09-23 06:44 | Inpatient (IN) | payer OTHER ==
[~2021-09-23] VITALS: Ht 157.5 cm; Wt 87.0 kg
[~2021-09-23 06:44] MED LIST changes: +Amoxicillin500 MG PO
[2021-09-23 07:40] LABS: U Amphetamine Screen DETECTED; U Barbituate Screen Not Detected; U Benzodiazapine Screen Not Detected; U Methamphetamine Screen DETECTED
[2021-09-23 07:41] LABS: U Buprenorphine Screen Not Detected; U Cannabinoids Screen DETECTED; U Cocaine Screen Not Detected; U Methadone Screen Not Detected; U Opiates Screen Not Detected; U Oxycodone Screen Not Detected; U Phencyclidine Screen Not Detected; U Propoxyphene Screen Not Detected
[2021-09-23] MEDS ORDERED: PRENATAL TABLE1 EAC2 PO (07:47)
[2021-09-23] MEDS ORDERED: ENOX60I SC (07:47)
[2021-09-23] MEDS ORDERED: SERT50 PO (07:47)
[2021-09-23] MEDS ORDERED: ASPIR 8181 M1 PO (07:48)
[2021-09-23 07:50] LABS: BASOPHILS ABSOLUTE AUTO 0.07 K/mm3 (0.00-0.23); BASOPHILS PERCENT AUTO 1 % (0-2); EOSINOPHILS ABSOLUTE AUTO 0.14 K/mm3 (0.00-0.68); EOSINOPHILS PERCENT AUTO 1 % (0-6); Hematocrit 35.9 % (33.0-51.0); Hemoglobin 12.2 g/dL (11.5-16.0); IMMATURE GRAN ABSOLUTE AUTO 0.15 K/mm3 (0.00-0.10); IMMATURE GRAN PERCENT AUTO 1 % (0-1); LYMPHOCYTES ABSOLUTE AUTO 2.31 K/mm3 (0.84-5.20); LYMPHOCYTES PERCENT AUTO 16 % (21-46); MONOCYTES ABSOLUTE AUTO 0.68 K/mm3 (0.16-1.47); MONOCYTES PERCENT AUTO 5 % (4-13); Mean Corpuscular HGB 27.8 pg (26.0-34.0); Mean Corpuscular Volume 82 fL (80-100); Mean Platelet Volume 11.1 fL (9.1-12.4); NEUTROPHILS PERCENT AUTO 76 % (41-73); Platelet Count 284 K/mm3 (150-400); RDW Coefficient Variation 14.4 % (11.7-14.2); RDW Standard Deviation 41.8 fL (35.1-46.3); Red Blood Cell Count 4.39 M/mm3 (3.80-5.20); White Blood Cell Count 14.15 K/mm3 (4.00-11.30)
[2021-09-23 08:17] LABS: Influenza A, PCR NEGATIVE (NEGATIVE); Influenza B, PCR NEGATIVE (NEGATIVE); Resp Syncytial Virus, PCR NEGATIVE (NEGATIVE); SARS-Cov-2 (COVID-19) PCR, MMC NEGATIVE (NEGATIVE)
--- NOTE | 2021-09-23 12:56 | NUR ---
09/23/21 1256 Dayanna Araujo VIABLE MALE BORN AT 1244 WITH NUCHAL AND MECONIUM FLUID. WEIGHT 6-7 (2928) APGARS 9/9. PLACENTA DELIVERED MANUALLY AND CORD GASES COLLECTED AND GIVEN TO RT. CORD BLOOD GIVEN TO DIANA RN. CORD SEGMONT CUT AND USED FOR CORD STAT 13 AND GIVEN TO DIANA RN. METHERGINE GIVEN AT [address] LINARES FOR PROPHYLAXIS IN LEFT THIGH.
[2021-09-23 13:02] LABS: PCO2 Cord - Arterial 61.2 mmHg (40-50); PO2 Cord - Arterial 14.5 mmHg (16-20); pH Cord - Arterial 7.29 (7.28-7.35)
[2021-09-23 13:06] LABS: PCO2 Cord - Venous 49.1 mmHg (40-50); PO2 Cord - Venous 29.7 mmHg (28-32); pH Umbilical Cord - Venous 7.36 (7.26-7.35)
--- NOTE | 2021-09-24 04:17 | NUR ---
PT USED THE RESTROOM AND REPORTS 9/10 PAIN. SCHEDULED TORADOL WAS GIVEN. PT DECLINES PERCOCET AT THIS TIME.
[2021-09-24 05:05] LABS: BASOPHILS ABSOLUTE AUTO 0.04 K/mm3 (0.00-0.23); BASOPHILS PERCENT AUTO 0 % (0-2); EOSINOPHILS ABSOLUTE AUTO 0.12 K/mm3 (0.00-0.68); EOSINOPHILS PERCENT AUTO 1 % (0-6); Hematocrit 32.8 % (33.0-51.0); Hemoglobin 10.8 g/dL (11.5-16.0); IMMATURE GRAN ABSOLUTE AUTO 0.09 K/mm3 (0.00-0.10); IMMATURE GRAN PERCENT AUTO 1 % (0-1); LYMPHOCYTES ABSOLUTE AUTO 2.04 K/mm3 (0.84-5.20); LYMPHOCYTES PERCENT AUTO 17 % (21-46); MONOCYTES ABSOLUTE AUTO 0.85 K/mm3 (0.16-1.47); MONOCYTES PERCENT AUTO 7 % (4-13); Mean Corpuscular HGB 27.6 pg (26.0-34.0); Mean Corpuscular HGB Conc 32.9 g/dL (31.5-36.5); Mean Corpuscular Volume 84 fL (80-100); Mean Platelet Volume 10.6 fL (9.1-12.4); NEUTROPHILS ABSOLUTE AUTO 9.05 K/mm3 (1.96-9.15); NEUTROPHILS PERCENT AUTO 74 % (41-73); Platelet Count 193 K/mm3 (150-400); RDW Coefficient Variation 14.5 % (11.7-14.2); RDW Standard Deviation 43.2 fL (35.1-46.3); Red Blood Cell Count 3.92 M/mm3 (3.80-5.20); White Blood Cell Count 12.19 K/mm3 (4.00-11.30)
[2021-09-25] MEDS ORDERED: IBUP800 PO (10:03)
[2021-09-25] MEDS ORDERED: Percocet 5-3251 EACH PO (10:04)
--- NOTE | 2021-10-01 15:27 | NUR ---
LATE ENTRY REENTERED INFORMATION FROM EMR RN HAD UNDONE CHARTING TO RESEND INFORMATION
== END 2021-09-25 13:00 | disposition home or self-care (01) | DRG 787 ==
LOC: BC 06:44
PROVIDERS: ADMIT Obstetrics & Gynecology
PROC: 10D00Z1 Extraction of Products of Conception, Low, Open Approach (ICD-10-PCS; principal; 2021-09-23 10:45)
DX: O44.03 Complete placenta previa NOS or without hemorrhage, third trimester (principal); O99.12 Other diseases of the blood and blood-forming organs and certain disorders involving the immune mechanism complicating childbirth; D68.51 Activated protein C resistance; O99.324 Drug use complicating childbirth; F15.20 Other stimulant dependence, uncomplicated; O34.211 Maternal care for low transverse scar from previous cesarean delivery; Z3A.37 37 weeks gestation of pregnancy; Z37.0 Single live birth; Z98.890 Other specified postprocedural states; Z91.040 Latex allergy status; Z20.822 Contact with and (suspected) exposure to COVID-19; F12.90 Cannabis use, unspecified, uncomplicated; F17.210 Nicotine dependence, cigarettes, uncomplicated; O99.334 Smoking (tobacco) complicating childbirth
CPT/HCPCS: 0241U; 36415; 82803; 85025; 86850; 86900; 86901; A9270; J0690; J1650; J1885; J2210; J2370; J2590; J2765; J3010; J7120